=== PATIENT | female | born 2000 | race Caucasian/White ===

== ENCOUNTER 2021-12-28 19:50 | Emergency (ER) | payer SELFPAY ==
[~2021-12-28] VITALS: Ht 167.6 cm; Wt 54.4 kg
--- NOTE | 2021-12-28 19:50 | NUR ---
Patient came into ER c/o cough, nasal congestion and bodyache x12 days. Patient denies SOB. No chestpain, no distress noted.
[2021-12-28] MEDS ORDERED: OXYM15MI4 NS (21:05)
[2021-12-28] MEDS ORDERED: AMOX500C2 PO (21:05)
[2021-12-28] MEDS ORDERED: AMOX-430 PO (21:05)
[2021-12-28] MEDS ORDERED: PSEU120T83 PO (21:05)
[2021-12-28] MEDS ORDERED: FLUT16SP16 BNOSTRILS (21:05)
[2021-12-28] MEDS ORDERED: OXYC-128 PO (21:13)
[2021-12-28 21:52] VITALS: BP 103/63
== END 2021-12-28 21:23 | disposition home or self-care (01) ==
LOC: ER 19:54
DX: J32.9 Chronic sinusitis, unspecified (principal)
CPT/HCPCS: A4663